=== PATIENT | male | born 1995 | race Caucasian/White ===

== ENCOUNTER 2017-07-03 14:24 | Emergency (ER) | payer OTHER ==
[~2017-07-03] VITALS: Ht 175.3 cm; Wt 80.5 kg
[2017-07-03 14:36] VITALS: Ht 175.3 cm; Wt 80.5 kg
[2017-07-03 15:28] VITALS: BP 140/71
== END 2017-07-03 15:28 | disposition home or self-care (01) ==
LOC: ED 14:24 → EDSEX 14:24 → ED 15:28
DX: S93.491A Sprain of other ligament of right ankle, initial encounter (principal); Z88.0 Allergy status to penicillin; X58.XXXA Exposure to other specified factors, initial encounter; Y93.89 Activity, other specified; Y92.89 Other specified places as the place of occurrence of the external cause; Y99.8 Other external cause status
CPT/HCPCS: Q0092